=== PATIENT | female | born 1965 | race Caucasian/White ===

== ENCOUNTER → 2024-05-14 12:20 | Outpatient (REF) | payer OTHER, SELFPAY ==
[2024-05-14 12:53] LABS: % Basophils 1.3 % (0-2); % Eosinophils 0.4 % (0-6); % Immature Granulocytes 0.6 % (0-0.5); % Lymphocytes 30.8 % (20.5-51.1); % Monocytes 11.9 % (1.7-9.3); Absolute Basophils 0.1 10^3/uL (0-0.2); Absolute Lymphocytes 1.6 10^3/uL (1.2-3.4); Absolute Monocytes 0.6 10^3/uL (0.1-0.6); Absolute Neutrophils 2.9 10^3/uL (1.4-6.5); Hemoglobin 9.6 g/dL (12.0-16.0); Mean Corp Hgb Conc. 33.1 g/dL (33.0-37.0); Mean Corpuscular Hgb 21.1 pg (27.0-31.0); Mean Corpuscular Volume 63.9 fL (81.0-99.0); Mean Platelet Volume 9.7 fL (7.4-10.4); Nucleated Red Blood Cells % 1.9 %; Platelet Count 209 10^3/uL (130-400); Red Blood Cell Count 4.54 10^6/uL (4.20-5.40); Red Cell Dist. Width 18.5 % (11.5-14.5); White Blood Cell Count 5.2 10^3/uL (4.8-10.8)
== END ==
LOC: REG 12:20
PROVIDERS: ATTENDING PHYSICIAN Physician Assistant
DX: F32.1 Major depressive disorder, single episode, moderate (principal); R53.83 Other fatigue; R06.02 Shortness of breath; D50.9 Iron deficiency anemia, unspecified
CPT/HCPCS: 36415; 85025

== ENCOUNTER → 2024-07-23 14:26 | Outpatient (REF) | payer OTHER, SELFPAY ==
[2024-07-23 15:40] LABS: % Basophils 0.8 % (0-2); % Eosinophils 0.2 % (0-6); % Immature Granulocytes 0.5 % (0-0.5); % Monocytes 10.6 % (1.7-9.3); % Neutrophils 63.9 % (42.2-75.2); Absolute Basophils 0.1 10^3/uL (0-0.2); Absolute Lymphocytes 1.4 10^3/uL (1.2-3.4); Absolute Monocytes 0.6 10^3/uL (0.1-0.6); Absolute Neutrophils 3.8 10^3/uL (1.4-6.5); Hematocrit 28.5 % (37.0-47.0); Hemoglobin 9.6 g/dL (12.0-16.0); Mean Corp Hgb Conc. 33.7 g/dL (33.0-37.0); Mean Corpuscular Hgb 23.5 pg (27.0-31.0); Mean Corpuscular Volume 69.9 fL (81.0-99.0); Mean Platelet Volume 9.5 fL (7.4-10.4); Nucleated Red Blood Cells % 1.9 %; Platelet Count 251 10^3/uL (130-400); Red Blood Cell Count 4.08 10^6/uL (4.20-5.40); Red Cell Dist. Width 23.6 % (11.5-14.5); White Blood Cell Count 5.9 10^3/uL (4.8-10.8)
[2024-07-23 15:53] LABS: Anisocytosis 2+; Normal RBC Morphology No
[2024-07-23 15:54] LABS: Macrocytosis 2+; Microcytosis 1+
[2024-07-23 15:55] LABS: Poikilocytosis Slight
[2024-07-23 15:57] LABS: Target Cells 2+
[2024-07-23 16:00] LABS: Basophilic Stippling Slight
[2024-07-23 16:05] LABS: ALT (SGPT) 54 U/L (0-35); AST (SGOT) 101 U/L (14-36); Albumin 3.7 g/dl (3.5-5.0); Alkaline Phosphatase 80 U/L (38-126); Amylase 48 U/L (30-110); Blood Urea Nitrogen 11 mg/dl (7-17); Calcium 8.7 mg/dl (8.4-10.2); Carbon Dioxide 36 mmol/L (22-30); Chloride 88 mmol/L (98-107); Glucose 123 mg/dl (70-99); Lipase 356 U/L (23-300); Potassium 2.4 mmol/L (3.5-5.1); Sodium 136 mmol/L (135-145); Total Bilirubin 3.9 mg/dl (0.2-1.3); eGFR > 60.00
== END ==
LOC: REG 14:26
PROVIDERS: ATTENDING PHYSICIAN Physician Assistant
DX: D50.9 Iron deficiency anemia, unspecified (principal); R42 Dizziness and giddiness; R17 Unspecified jaundice; F32.1 Major depressive disorder, single episode, moderate; R79.89 Other specified abnormal findings of blood chemistry; R16.0 Hepatomegaly, not elsewhere classified; R91.8 Other nonspecific abnormal finding of lung field
CPT/HCPCS: 36415; 80053; 82150; 83690; 85025

== ENCOUNTER → 2024-07-24 10:23 | Outpatient (REF) | payer OTHER, SELFPAY ==
[2024-07-24 11:26] LABS: Potassium 2.6 mmol/L (3.5-5.1)
== END ==
LOC: REG 10:23
PROVIDERS: ATTENDING PHYSICIAN Nurse Practitioner Family; FAMILY PHYSICIAN Physician Assistant
DX: E87.6 Hypokalemia (principal)
CPT/HCPCS: 36415; 84132

== ENCOUNTER 2024-12-26 18:15 | Emergency (ER) | payer OTHER, SELFPAY ==
[2024-12-26 18:24] VITALS: BP 114/78
[2024-12-26 19:02] VITALS: BMI 24.7
[2024-12-26 19:21] LABS: % Eosinophils 0.2 % (0-6); % Immature Granulocytes 0.6 % (0-0.5); % Lymphocytes 20.9 % (20.5-51.1); % Monocytes 18.2 % (1.7-9.3); % Neutrophils 59.1 % (42.2-75.2); Absolute Basophils 0.1 10^3/uL (0-0.2); Absolute Lymphocytes 1.3 10^3/uL (1.2-3.4); Absolute Monocytes 1.1 10^3/uL (0.1-0.6); Absolute Neutrophils 3.6 10^3/uL (1.4-6.5); Hematocrit 23.4 % (37.0-47.0); Mean Corp Hgb Conc. 34.2 g/dL (33.0-37.0); Mean Corpuscular Hgb 23.1 pg (27.0-31.0); Mean Corpuscular Volume 67.4 fL (81.0-99.0); Mean Platelet Volume 9.4 fL (7.4-10.4); Nucleated Red Blood Cells % 1.6 %; Platelet Count 190 10^3/uL (130-400); Red Blood Cell Count 3.47 10^6/uL (4.20-5.40); Red Cell Dist. Width 20.7 % (11.5-14.5); White Blood Cell Count 6.2 10^3/uL (4.8-10.8)
[2024-12-26 19:35] LABS: ALT (SGPT) 70 U/L (0-35); AST (SGOT) 213 U/L (14-36); Albumin 3.4 g/dl (3.5-5.0); Alkaline Phosphatase 97 U/L (38-126); Blood Urea Nitrogen 18 mg/dl (7-17); Calcium 8.3 mg/dl (8.4-10.2); Carbon Dioxide 29 mmol/L (22-30); Chloride 94 mmol/L (98-107); Estimated Creatinine Clearance 59 ml/min; Glucose 113 mg/dl (70-99); Lipase 515 U/L (23-300); Sodium 135 mmol/L (135-145); Total Bilirubin 2.6 mg/dl (0.2-1.3); Total Protein 6.7 g/dl (6.3-8.2); eGFR > 60.00
[2024-12-26 20:00] VITALS: BP 118/66
[2024-12-26 20:47] LABS: Troponin I < 0.012 ng/ml
[2024-12-26 21:00] VITALS: BP 117/63
[2024-12-26] MEDS: KLOR-CON 20 MEQ PO (21:04)
[2024-12-26 21:25] LABS: ALT (SGPT) 69 U/L (0-35); AST (SGOT) 199 U/L (14-36); Albumin 3.1 g/dl (3.5-5.0); Alkaline Phosphatase 89 U/L (38-126); Blood Urea Nitrogen 20 mg/dl (7-17); Calcium 7.9 mg/dl (8.4-10.2); Carbon Dioxide 30 mmol/L (22-30); Chloride 94 mmol/L (98-107); Estimated Creatinine Clearance 68 ml/min; Glucose 95 mg/dl (70-99); Potassium 3.5 mmol/L (3.5-5.1); Sodium 132 mmol/L (135-145); Total Bilirubin 2.7 mg/dl (0.2-1.3); Total Protein 6.4 g/dl (6.3-8.2); eGFR > 60.00
[2024-12-26 21:55] LABS: TSH Reflex To Free T4 4.37 uIU/ml (0.47-4.68)
[2024-12-26 22:00] VITALS: BP 118/73
[2024-12-26 23:00] VITALS: BP 126/73
--- NOTE | 2024-12-26 23:22 | ED.GENMED ---
History of Present Illness
General
Chief Complaint: Abnormal Lab Value
Source: patient
Exam Limitations: none
Time Seen by Provider: 12/26/24 18:43
Nursing documentation reviewed up to this point in time: agreed with
History of Present Illness
History of Present Illness:
59-year-old female presenting to the emergency department today with concerns of an abnormal potassium as an outpatient of 2.2. She has had some vague fatigue weakness over the past few days as well. Does have some chronic lab abnormalities that
has been monitored as an outpatient.
Past History
Past History
ED Past Medical History: HTN
ED Past Surgical History: Cholecystectomy
Social History
Tobacco: Non-smoker
Alcohol: Occasional
Drug: None
Personal:
Living: with family
Review of Systems
Review of Systems
Allergies reviewed?: Yes
All Other Systems: ROS reviewed and negative except as documented in HPI and ROS
Phy Exam
Physical Exam
Physical Exam:
GENERAL: Alert , in no apparent distress
EYE: pupils equal and reactive
NECK: Supple, no significant adenopathy.
ENT: o/p clr, mmm.
CARDIAC: Regular rate and rhythm .
LUNGS: Clear breath sounds bilaterally, no acute respiratory distress, no wheezes/rales/rhonchi
ABDOMEN: Soft, without focal tenderness, no r/g, no cvat
NEUROLOGICAL: Alert and oriented, no focal neuro deficits
SKIN: Warm and dry, skin intact.
MUSCULOSKELETAL: No edema, well perfused.
PSYCH: Normal and appropriate interaction.
Course
Orders/Labs/Results
Orders:
Orders
12/26/24 18:16
ECG [Electrocardiogram (*1)] Urgent
Reason for Study: Chest Pain
EKG- Treatment ONCE
12/26/24 19:09
Urinalysis Reflex To Culture Urgent
12/26/24 19:14
CBC/With Diff [Complete Blood Count/With Diff] Urgent
CMP [Comprehensive Metabolic Panel] Urgent
Lipase Urgent
12/26/24 19:59
Troponin I Urgent
12/26/24 20:45
Add On- LAB Urgent
Tests Added?: tsh free t4
Potassium Chloride Powder [Klor-Con] 20 meq PO NOW STA
12/26/24 20:59
CMP [Comprehensive Metabolic Panel] Urgent
12/26/24 21:03
TSH Reflex To Free T4 Urgent
Comment: ADD ON
Abnormal Lab Results
12/26/24 12/26/24
19:14 20:59
RBC 3.47 L 10^6/uL
(4.20-5.40)
Hgb 8.0 L g/dL
(12.0-16.0)
Hct 23.4 L %
(37.0-47.0)
MCV 67.4 L fL
(81.0-99.0)
MCH 23.1 L pg
(27.0-31.0)
RDW 20.7 H %
(11.5-14.5)
Absolute Monos (auto) 1.1 H 10^3/uL
(0.1-0.6)
Immature Gran % 0.6 H %
(0-0.5)
Monocytes % 18.2 H %
(1.7-9.3)
Sodium 132 L mmol/L
(135-145)
Potassium 3.0 L mmol/L
(3.5-5.1)
Chloride 94 L mmol/L 94 L mmol/L
(98-107) (98-107)
BUN 18 H mg/dl 20 H mg/dl
(7-17) (7-17)
Glucose 113 H mg/dl
(70-99)
Calcium 8.3 L mg/dl 7.9 L mg/dl
(8.4-10.2) (8.4-10.2)
Total Bilirubin 2.6 H mg/dl 2.7 H mg/dl
(0.2-1.3) (0.2-1.3)
AST 213 H U/L 199 H U/L
(14-36) (14-36)
ALT 70 H U/L 69 H U/L
(0-35) (0-35)
Albumin 3.4 L g/dl 3.1 L g/dl
(3.5-5.0) (3.5-5.0)
Lipase 515 H U/L
(23-300)
12/26/24 19:14
12/26/24 20:59
Vital Signs
Initial and Last Documented VS:
Initial Vital Signs
Temp Pulse Resp BP Pulse Ox
98.1 F 121 17 114/78 98
12/26/24 18:24 12/26/24 18:24 12/26/24 18:24 12/26/24 18:24 12/26/24 18:24
Last Documented Vital Signs
Temp Pulse Resp BP Pulse Ox
98.1 F 84 15 126/73 96
12/26/24 18:24 12/26/24 23:00 12/26/24 23:00 12/26/24 23:00 12/26/24 23:00
MDM/Problems Addressed
MDM/Problems Addressed:
59-year-old female presenting to the emergency department today with concerns of low potassium with outpatient lab. Here potassium is 3.0. Significantly better number than previous potassium of 2.2. This was repeated and 3.5. Other labs at
patient's baseline hemoglobin 8.0 slightly below patient's baseline in the nines. Patient well-appearing General Here stable for close outpatient follow-up return precautions given.
*Critical Care Note
Total Time (30-74mins, 75-104mins- exclusive of procedures): Not Applicable
ED Attending Note
-
Portions of this chart may have been created with voice recognition software.� Occasional wrong word or��sound alike� substitutions may have occurred due to the inherent limitations of voice recognition software.
Discharge Plan
Departure
Patient Disposition: Home (Routine Discharge)
Date of Disposition: 12/26/24
Time of Disposition: 23:25
Patient with high blood pressure during this ER visit?: No
Condition: Good
Covid-19: Not Applicable
Discharge Problem:
Anemia
Instructions: Normocytic Normochromic Anemia (DC)
Prescriptions:
No Action
lisinopril 20 mg
PO DAILY
acetaminophen 325 mg Tablet
650 mg PO Q4HPRN PRN (Reason: mild pain/FOWLER/temp> 100.4F) Qty: 60 0RF
hydrocodone-acetaminophen 5-325 mg tablet
1 tab PO Q6H PRN (Reason: moderate to severe pain) Qty: 30 0RF
Referrals:
[facility], [Other]
Loida Cárdenas MD [Family Provider, [facility]]
Activity Restrictions/Additional Instructions:
You came to the emergency department today with concerns of an abnormal lab. Here your potassium level is normal. Please follow closely as an outpatient. Return for any worsening, new or concerning symptoms.
Interventions
Interventions:
*Risk Screen - Suicide Last Done: 12/26/24 18:27
*General Assessment Last Done: 12/26/24 18:27
*Neglect/Abuse Screening Last Done: 12/26/24 18:27
*ED- Fall Risk Assessment Last Done: 12/26/24 19:10
*ED COVID-19 Vaccine History Last Done: 12/26/24 18:27
Discharge Date and Time
Print Language: KOREAN
== END 2024-12-26 23:51 | disposition home or self-care (01) ==
LOC: EMR 18:15
PROVIDERS: Physician Assistant; EMERGENCY PHYSICIAN Emergency Medicine; FAMILY PHYSICIAN Family Medicine
DX: D64.9 Anemia, unspecified (principal); E87.6 Hypokalemia; I10 Essential (primary) hypertension; Z90.49 Acquired absence of other specified parts of digestive tract
CPT/HCPCS: 99284; 80053; 83690; 84443; 84484; 85025; 93005

== ENCOUNTER 2025-01-04 14:23 | Emergency (ER) | payer OTHER, SELFPAY ==
[2025-01-04 14:26] VITALS: BP 135/88
[2025-01-04 15:00] LABS: % Basophils 0.9 % (0-2); % Eosinophils 2.2 % (0-6); % Immature Granulocytes 0.7 % (0-0.5); % Monocytes 7.8 % (1.7-9.3); % Neutrophils 66.4 % (42.2-75.2); Absolute Basophils 0.1 10^3/uL (0-0.2); Absolute Eosinophils 0.2 10^3/uL (0-0.7); Absolute Immature Granulocytes 0.1 10^3/uL (0-0.05); Absolute Lymphocytes 1.5 10^3/uL (1.2-3.4); Absolute Monocytes 0.5 10^3/uL (0.1-0.6); Absolute Neutrophils 4.5 10^3/uL (1.4-6.5); Hematocrit 25.5 % (37.0-47.0); Hemoglobin 8.3 g/dL (12.0-16.0); Mean Corp Hgb Conc. 32.5 g/dL (33.0-37.0); Mean Corpuscular Hgb 22.6 pg (27.0-31.0); Mean Corpuscular Volume 69.3 fL (81.0-99.0); Mean Platelet Volume 9.6 fL (7.4-10.4); Nucleated Red Blood Cells % 1.6 %; Platelet Count 299 10^3/uL (130-400); Red Blood Cell Count 3.68 10^6/uL (4.20-5.40); Red Cell Dist. Width 19.9 % (11.5-14.5); White Blood Cell Count 6.8 10^3/uL (4.8-10.8)
--- NOTE | 2025-01-04 15:02 | ED.GENMED ---
History of Present Illness
General
Chief Complaint: Withdrawal Symptoms
Source: patient
Exam Limitations: none
Time Seen by Provider: 01/04/25 14:53
History of Present Illness
History of Present Illness:
59yoF with a history of alcohol abuse and hypertension presenting for evaluation of alcohol withdrawal. She typically drinks 15-20 shots of vodka a day. She wants to stop drinking and had her last drink around 5-6pm last night. She woke up this
morning feeling very shaky and anxious. She also had an episode of vomiting. She denies any headache, diarrhea, hallucinations. No prior history of withdrawal seizures.
Past History
Past History
ED Past Medical History: HTN
ED Past Surgical History: Cholecystectomy
Social History
Tobacco: Non-smoker
Alcohol: Occasional
Drug: None
Personal:
Living: with family
Phy Exam
General Physical Exam
General Presentation: mild distress
General Skin: warm and dry
General Habitus: normal
General Mental: alert
ENT Exam
ENT Exam: normocephalic
Cardiovascular Exam
Cardiovascular Exam: tachycardia
Pulmonary Exam
Pulmonary Exam: lungs clear, no respiratory distress, no rales, no crackles, no rhonchi and no wheezing
Neurological Exam
Neurological Exam: alert and other (Tremors noted)
Byron Coma Scale
Eye Opening: Spontaneous
Verbal Response: Oriented
Motor Response: Obeys Commands
GCS Total Score: 15
Skin Exam
Skin Exam: warm/dry
Psychiatric Exam
Psychiatric Exam: anxious
Course
Orders/Labs/Results
Orders:
Orders
01/04/25 14:39
Alcohol Urgent
Complete Blood Count/With Diff Urgent
Comprehensive Metabolic Panel Urgent
Lipase Urgent
Magnesium Urgent
Comment: ADD ON
01/04/25 15:00
Add On- LAB Urgent
Tests Added?: magnesium
Electrocardiogram (*1) Urgent
Reason for Study: QTc Monitoring
Cardiac Monitoring- Treatment ONCE
EKG- Treatment ONCE
0.9% Sodium Chloride 1000 ml [Nss] 1,000 ml IV BOLUS
01/04/25 15:02
Lorazepam [Ativan] 2 mg IV NOW STA
01/04/25 15:23
Magnesium Sulfate 2 Gram/50 ml [Magnesium Sulfate] 2 gram in 50 ml IV NOW
01/04/25 18:51
Lorazepam [Ativan] 2 mg IV NOW STA
Ondansetron Injectable [Zofran] 4 mg IV NOW STA
01/04/25 18:54
Lorazepam [Ativan] 2 mg PO NOW STA
Ondansetron Orally Disint [Zofran Odt (Orally Disintegrating)] 4 mg PO NOW STA
Abnormal Lab Results
01/04/25
14:39
RBC 3.68 L 10^6/uL
(4.20-5.40)
Hgb 8.3 L g/dL
(12.0-16.0)
Hct 25.5 L %
(37.0-47.0)
MCV 69.3 L fL
(81.0-99.0)
MCH 22.6 L pg
(27.0-31.0)
MCHC 32.5 L g/dL
(33.0-37.0)
RDW 19.9 H %
(11.5-14.5)
Abs Immat Gran (auto) 0.1 H 10^3/uL
(0-0.05)
Immature Gran % 0.7 H %
(0-0.5)
Glucose 156 H mg/dl
(70-99)
Magnesium 1.5 L mg/dl
(1.6-2.3)
Total Bilirubin 2.5 H mg/dl
(0.2-1.3)
AST 227 H U/L
(14-36)
ALT 68 H U/L
(0-35)
01/04/25 14:39
01/04/25 14:39
Vital Signs
Initial and Last Documented VS:
Initial Vital Signs
Temp Pulse Resp BP Pulse Ox
99.0 F 129 22 135/88 96
01/04/25 14:26 01/04/25 14:26 01/04/25 14:26 01/04/25 14:26 01/04/25 14:26
Last Documented Vital Signs
Temp Pulse Resp BP Pulse Ox
99.0 F 108 18 135/77 97
01/04/25 14:26 01/04/25 20:20 01/04/25 20:20 01/04/25 20:20 01/04/25 20:20
MDM/Problems Addressed
Differential Diagnosis Includes:
59yoF here with alcohol withdrawal. Last drink yesterday evening. C/o shaking and anxiety. No history of DTs/withdrawal. HR 129 in triage. HR in the 100-110 range during exam. BP stable. She is tremulous and anxious. Differential diagnosis includes
but is not limited to: alcohol withdrawal, dehydration, electrolyte abnormality
Initial ED plan: Check CBC, CMP, magnesium, ETOH level, and EKG. 2mg IV Ativan and fluid bolus for symptoms.
*Pulse Oximetry
Patient hypoxic: no (97%)
*EKG
Interpreted by ED Provider?: Yes
EKG Intrepretation Date: 01/04/25
Heart Rate: 102
Rate: tachycardiac
Rhythm: sinus
Alta: normal axis
Interval: normal interval
QRS Pattern: low voltage
Ischemia: no ischemia
*Critical Care Note
Total Time (30-74mins, 75-104mins- exclusive of procedures): Not Applicable
Update Note
Update Note:
Transaminitis noted with AST:ALT ratio of 1:2 consistent with alcohol use. Hemoglobin 8.3 which is stable from last week. Magnesium 1.5 which was replaced. Patient feeling improved on multiple reassessments. Patient assessed by [facility] and was
accepted at [facility] for detox. Patient being transported directly to detox facility for further treatment. She was discharged in stable condition.
ED Attending Note
-
Portions of this chart may have been created with voice recognition software.� Occasional wrong word or��sound alike� substitutions may have occurred due to the inherent limitations of voice recognition software.
Discharge Plan
Departure
Patient Disposition: Home (Routine Discharge)
Date of Disposition: 01/04/25
Time of Disposition: 18:52
Patient with high blood pressure during this ER visit?: No
Discharge Problem:
Alcohol withdrawal
Instructions: Alcohol Withdrawal (DC)
Prescriptions:
No Action
lisinopril 20 mg
PO DAILY
acetaminophen 325 mg Tablet
650 mg PO Q4HPRN PRN (Reason: mild pain/FOWLER/temp> 100.4F) Qty: 60 0RF
hydrocodone-acetaminophen 5-325 mg tablet
1 tab PO Q6H PRN (Reason: moderate to severe pain) Qty: 30 0RF
Referrals:
Donell Miranda MD [Family Provider, Family Practice]
Activity Restrictions/Additional Instructions:
You are being discharged directly to a detox facility for further care.
Interventions
Interventions:
*Risk Screen - Suicide Last Done: 01/04/25 14:26
*General Assessment Last Done: 01/04/25 14:26
*Neglect/Abuse Screening Last Done: 01/04/25 20:20
*ED- Fall Risk Assessment Last Done: 01/04/25 20:20
*ED COVID-19 Vaccine History Last Done: 01/04/25 20:20
*Nursing Disposition Last Done: 01/04/25 20:21
ED- Neurological Assessment Last Done: 01/04/25 19:15
ED-Psychological Assessment Last Done: 01/04/25 15:36
Discharge Date and Time
Discharge Date/Time: 01/04/25 20:22
Print Language: THAI
[2025-01-04 15:07] LABS: AST (SGOT) 227 U/L (14-36); Albumin 3.7 g/dl (3.5-5.0); Alkaline Phosphatase 101 U/L (38-126); Blood Urea Nitrogen 15 mg/dl (7-17); Calcium 8.8 mg/dl (8.4-10.2); Carbon Dioxide 25 mmol/L (22-30); Chloride 102 mmol/L (98-107); Glucose 156 mg/dl (70-99); Lipase 262 U/L (23-300); Potassium 4.8 mmol/L (3.5-5.1); Sodium 137 mmol/L (135-145); Total Bilirubin 2.5 mg/dl (0.2-1.3); Total Protein 7.4 g/dl (6.3-8.2); eGFR > 60.00
[2025-01-04 15:08] LABS: Alcohol None Detected
[2025-01-04] MEDS: NSS 1000 IV (15:18)
[2025-01-04] MEDS: ATIVAN 2 MG IV (15:18)
[2025-01-04 15:20] LABS: ALT (SGPT) 68 U/L (0-35); Magnesium 1.5 mg/dl (1.6-2.3)
[2025-01-04] MEDS: MAGNESIUM SULFATE 50 IV (15:27)
[2025-01-04 16:13] VITALS: BP 128/75
[2025-01-04 17:00] VITALS: BP 121/63
[2025-01-04 18:00] VITALS: BP 121/63
[2025-01-04] MEDS: ZOFRAN ODT (ORALLY DISINTEGRATING) 4 MG PO (19:11)
[2025-01-04] MEDS: ATIVAN 2 MG PO (19:11)
[2025-01-04 19:15] VITALS: BP 128/69
[2025-01-04 20:20] VITALS: BP 135/77
== END 2025-01-04 20:22 | disposition home or self-care (01) ==
LOC: EMR 14:23
PROVIDERS: Emergency Medicine; EMERGENCY PHYSICIAN Emergency Medicine; FAMILY PHYSICIAN Family Medicine
DX: F10.939 Alcohol use, unspecified with withdrawal, unspecified (principal); I10 Essential (primary) hypertension
CPT/HCPCS: 99284; 96374; 96375; 96361; 80053; 82077; 83690; 83735; 85025; 93005

== ENCOUNTER 2025-02-26 01:21 | Emergency (ER) | payer OTHER, SELFPAY ==
[2025-02-26 01:33] VITALS: BP 131/88
[2025-02-26 01:52] VITALS: BMI 26.8
[2025-02-26 02:03] VITALS: BP 130/79
--- NOTE | 2025-02-26 02:03 | ED.GENMED ---
History of Present Illness
General
Chief Complaint: Alcohol Problem
Source: patient
Exam Limitations: none
Time Seen by Provider: 02/26/25 01:40
Nursing documentation reviewed up to this point in time: agreed with
History of Present Illness
History of Present Illness:
Note:
CHIEF COMPLAINT(S)
Alcohol withdrawal symptoms, including shaking and heart palpitations.
HISTORY OF PRESENT ILLNESS
The patient is a 59-year-old female with a h who presents with symptoms indicative of alcohol withdrawal following a relapse. She reports feeling symptoms including tremors and a racing heart. The patient has a history of alcohol use disorder,
with a prior admission to a rehabilitation facility for 26 days in December and January. She admits to consuming alcohol the previous day, noting that her typical consumption is about a large bottle of liquor per week. Withdrawal symptoms began earlier in
the day and included notable shaking which she describes as frightening. She also had an episode of chest pain the following night but she is not currently symptomatic. She attempted self-detoxification, using additional doses of her prescribed
medications, and reports unsuccessful efforts at sleep starting around 9 PM. The patient denies nausea, vomiting, auditory or visual hallucinations, and has not experienced prior seizure activity related to alcohol withdrawal. She denies tactile
disturbances. She notes previous anemia and a diagnosis of thalassemia, for which she follows up with Hematology and has an appointment with [facility] coming up. She denies hematemesis, rectal bleeding, dark tarry stools. Patient has never
required admission to the ICU for alcohol withdrawal.
CHRONIC MEDICAL CONDITIONS SIGNIFICANTLY AFFECTING CARE
Hypertension, alcohol use disorder, anemia, thalassemia.
SOCIAL DETERMINANTS AFFECTING HEALTH
The patient reveals stress and familial conflict related to her alcohol use. She expressed sadness over missing her son�s wedding in [place] due to her condition, indicating familial estrangement related to her alcohol use disorder. Additionally,
she mentions financial burden due to missed social commitments.
MEDICATIONS
- Lisinopril
- Naltrexone
REVIEW OF SYSTEMS
- Cardiovascular: Reports palpitations but currently resolved. No history of myocardial infarction.
- Gastrointestinal: No nausea, vomiting, abdominal pain, or gastrointestinal bleeding.
- Neurological: Tremors present but reports absence of headaches, seizures, numbness, or tingling sensations.
- Psychiatric: Anxiety related to alcohol withdrawal.
PHYSICAL EXAM
Nursing notes reviewed and vital signs reviewed.
General: Patient is well appearing and in no acute distress; non-toxic
Skin: Warm and dry, no rashes or lesions
Head: Normocephalic, atraumatic
Eyes: Sclera non-icteric. EOMs intact.
Cardiac: Tachycardia noted otherwise regular rhythm, no murmurs
Pulm: Normal respiratory effort, no wheezes, rales, or rhonchi
Abdomen: No abdominal tenderness to palpation
Neuro: CN II-XII intact, no focal neurologic deficits.
CIWA: 4--anxiety, visible resting tremors
Psychiatric: Appropriate mood and affect.
PROBLEM LIST
Acute:
- Alcohol withdrawal
- anxiety related to relapse
Chronic:
- Hypertension
- Alcohol use disorder
- Anemia and Thalassemia
PLAN
Administer Lorazepam intravenously for acute alcohol withdrawal management, administer fluids, check blood work including magnesium and potassium levels. Discuss the importance of adherence to treatment plans to prevent future withdrawal episodes
and further discuss the patients compliance once stabilized.
DIFFERENTIAL DIAGNOSIS
The Differential Diagnosis includes, in no particular order and is not limited to:
1. Alcohol withdrawal syndrome
2. Anxiety disorder
3. Panic attack
4. Essential tremor
5. Hyperthyroidism
6. Cardiac arrhythmia
7. Myocardial infarction
8. Substance use disorder relapse
9. Dehydration
10. Electrolyte imbalance
UPDATE
3:40 am--Patient reports feeling much better, less anxious, she still has tremors from time to time. Will give 1 mg of Ativan and will give a bolus of IV fluids. Patient did speak to [facility] and does not want to go back to inpatient rehab at this
time. She states that she believes she relapsed because she not have her naltrexone for 2 weeks.
MDM/DISPOSITION
The patient is a 59-year-old female with a pmh who presents with symptoms indicative of alcohol withdrawal following a relapse. CIWA 4 initially before treatment.
CIWA 1 at time of discharge. Patient refusing [facility] rehab, given resources. Discussed strict return precautions. Discussed case with ED attending. Will send home with a few Ativan tablets.
Labs reviewed table anemia patient has a follow up with reverse engineer coming up. AST >ALT with T bili elvation. Trending down from prior.
Past History
Past History
ED Past Medical History: HTN
ED Past Surgical History: Cholecystectomy
Social History
Tobacco: Non-smoker
Alcohol: Occasional
Drug: None
Personal:
Living: with family
Review of Systems
Review of Systems
All Other Systems: ROS reviewed and negative except as documented in HPI and ROS
Phy Exam
Physical Exam
Physical Exam:
see hpi
Scores
Withdrawal Assessment of Alcohol
Withdrawal Assessment Completed?: Yes
Nausea and Vomiting: No nausea and no vomiting
Tactile Disturbances: None
Tremor: Not visible, but can be felt fingertip to fingertip
Auditory Disturbances: Not present
Paroxysmal Sweats: No sweat visible
Visual Disturbances: Not present
Anxiety: No anxiety, at ease
Headache, Fullness in Head: Not present
Agitation: Normal activity
Orientation and clouding of sensorium: Oriented and can do serial additions
Total CIWA Score: 1
Alcohol Withdrawal Medication Recommendation: Equal to MSAS Score 0-4. Monitor & re-assess q2hrs, NO MEDICATION NEEDED
Course
Orders/Labs/Results
Orders:
Orders
02/26/25 02:01
Electrocardiogram (*1) Urgent
Reason for Study: Chest Pain
EKG- Treatment ONCE
Lorazepam [Ativan] 2 mg PO NOW STA
02/26/25 02:02
0.9% Sodium Chloride 500 ml [Nss] 500 ml IV BOLUS
02/26/25 02:11
Alcohol Urgent
Complete Blood Count/With Diff Urgent
Comprehensive Metabolic Panel Urgent
Magnesium Urgent
Troponin I Urgent
02/26/25 03:41
0.9% Sodium Chloride 500 ml [Nss] 500 ml IV BOLUS
Lorazepam [Ativan] 1 mg IV NOW STA
Abnormal Lab Results
02/26/25
02:11
RBC 3.91 L 10^6/uL
(4.20-5.40)
Hgb 8.1 L g/dL
(12.0-16.0)
Hct 25.5 L %
(37.0-47.0)
MCV 65.2 L fL
(81.0-99.0)
MCH 20.7 L pg
(27.0-31.0)
MCHC 31.8 L g/dL
(33.0-37.0)
RDW 17.2 H %
(11.5-14.5)
Plt Count 101 L 10^3/uL
(130-400)
Carbon Dioxide 16 L mmol/L
(22-30)
BUN 22 H mg/dl
(7-17)
Magnesium 1.5 L mg/dl
(1.6-2.3)
Total Bilirubin 1.6 H mg/dl
(0.2-1.3)
AST 105 H U/L
(14-36)
ALT 47 H U/L
(0-35)
02/26/25 02:11
02/26/25 02:11
Vital Signs
Initial and Last Documented VS:
Initial Vital Signs
Temp Pulse Resp BP Pulse Ox
97.9 F 97 16 131/88 99
02/26/25 01:33 02/26/25 01:33 02/26/25 01:33 02/26/25 01:33 02/26/25 01:33
Last Documented Vital Signs
Temp Pulse Resp BP Pulse Ox
98.4 F 96 19 125/76 97
02/26/25 03:58 02/26/25 05:45 02/26/25 05:45 02/26/25 05:00 02/26/25 05:45
*Pulse Oximetry
SaO2: 99
Oxygen Mode of Delivery: Room air
Patient hypoxic: no
*Critical Care Note
Total Time (30-74mins, 75-104mins- exclusive of procedures): Not Applicable
ED Attending Note
-
Portions of this chart may have been created with voice recognition software.� Occasional wrong word or��sound alike� substitutions may have occurred due to the inherent limitations of voice recognition software.
Discharge Plan
Departure
Patient Disposition: Home (Routine Discharge)
Date of Disposition: 02/26/25
Time of Disposition: 05:51
Patient with high blood pressure during this ER visit?: Yes
Condition: Good
Discharge Problem:
Alcohol withdrawal
Instructions: Alcohol Withdrawal (DC), BLOOD PRESSURE
Prescriptions:
New
lorazepam [Ativan] 2 mg tablet
2 mg PO BID PRN (Reason: alcohol withdrawal) 3 Days Qty: 6 0RF
No Action
lisinopril 20 mg
20 mg PO DAILY
naltrexone 50 mg Tablet
50 mg PO DAILY
folic acid 1 mg Tablet
1 mg PO DAILY
Referrals:
Donell Miranda MD [Family Provider, Family Practice]
Activity Restrictions/Additional Instructions:
You were given resources for outpatient management of alcohol use disorder. For the next few days, should you develop further tremors, you can take 1 Ativan tablet twice daily for 3 days. Please only status for breakthrough symptoms. Please
continue to use naltrexone as directed by your provider. If you change your mind regarding inpatient treatment, you can always return to the emergency department. PLEASE RETURN TO THE ER SHOULD YOU DEVELOP TREMORS, SEIZURE-LIKE ACTIVITY,
CONFUSION, INTRACTABLE NAUSEA OR VOMITING, HEADACHES, FEVERS OR CHILLS, CHEST PAIN, SHORTNESS OF BREATH, FAINTING SPELLS, OR ANY OTHER SIGNS OR SYMPTOMS WORRISOME TO YOU.
Interventions
Interventions:
*Risk Screen - Suicide Last Done: 02/26/25 01:33
*General Assessment Last Done: 02/26/25 01:52
*Neglect/Abuse Screening Last Done: 02/26/25 01:33
*ED- Fall Risk Assessment Last Done: 02/26/25 01:33
*ED COVID-19 Vaccine History Last Done: 02/26/25 01:52
*Nursing Disposition Last Done: 02/26/25 05:55
ED- Neurological Assessment Last Done: 02/26/25 01:52
ED-Psychological Assessment Last Done: 02/26/25 01:52
Discharge Date and Time
Discharge Date/Time: 02/26/25 05:55
Print Language: SAMI
[2025-02-26] MEDS: ATIVAN 2 MG PO (02:22)
[2025-02-26] MEDS: NSS 500 IV ×2 (02:23→03:52)
[2025-02-26 02:42] LABS: Hematocrit 25.5 % (37.0-47.0); Hemoglobin 8.1 g/dL (12.0-16.0); Mean Corp Hgb Conc. 31.8 g/dL (33.0-37.0); Mean Corpuscular Volume 65.2 fL (81.0-99.0); Nucleated Red Blood Cells % 0.8 %; Platelet Count 101 10^3/uL (130-400); Red Cell Dist. Width 17.2 % (11.5-14.5)
[2025-02-26 02:47] LABS: ALT (SGPT) 47 U/L (0-35); AST (SGOT) 105 U/L (14-36); Albumin 4.1 g/dl (3.5-5.0); Alkaline Phosphatase 66 U/L (38-126); Blood Urea Nitrogen 22 mg/dl (7-17); Calcium 8.6 mg/dl (8.4-10.2); Carbon Dioxide 16 mmol/L (22-30); Chloride 103 mmol/L (98-107); Estimated Creatinine Clearance 59 ml/min; Glucose 75 mg/dl (70-99); Magnesium 1.5 mg/dl (1.6-2.3); Potassium 3.9 mmol/L (3.5-5.1); Sodium 136 mmol/L (135-145); Total Protein 7.3 g/dl (6.3-8.2); eGFR > 60.00
[2025-02-26 02:49] LABS: Troponin I < 0.012 ng/ml
[2025-02-26 03:00] VITALS: BP 123/67
[2025-02-26] MEDS: ATIVAN 1 MG IV (03:53)
[2025-02-26 04:00] VITALS: BP 126/64
[2025-02-26 05:00] VITALS: BP 125/76
== END 2025-02-26 05:55 | disposition home or self-care (01) ==
LOC: EMR 01:21
PROVIDERS: Physician Assistant; EMERGENCY PHYSICIAN Emergency Medicine; FAMILY PHYSICIAN Family Medicine
DX: F10.939 Alcohol use, unspecified with withdrawal, unspecified (principal); I10 Essential (primary) hypertension; D56.9 Thalassemia, unspecified; Y90.9 Presence of alcohol in blood, level not specified
CPT/HCPCS: 99284; 96374; 96361 ×2; 80053; 82077; 83735; 84484; 85025; 93005